=== PATIENT | male | born 1960 | race African-American/Black ===

== ENCOUNTER 2017-03-17 21:35 | Emergency (ER) | payer OTHER ==
[~2017-03-17] VITALS: Ht 175.3 cm; Wt 90.7 kg
[~2017-03-17 21:35] MED LIST: ASPERCREME76.5 GM; ICY HOT1 EAC1; [UNRECOGNIZED DRUG - OTHER] TP
[2017-03-17] MEDS ORDERED: AMOXICILLIN 50500 MG PO (22:06)
[2017-03-17] MEDS ORDERED: ULTRAM 50MG TAB50 MG PO (22:06)
[2017-03-17 23:30] VITALS: BP 140/70
== END 2017-03-17 23:25 | disposition home or self-care (01) ==
LOC: ER 21:35
DX: K04.7 Periapical abscess without sinus (principal)

== ENCOUNTER 2017-09-09 21:25 | Emergency (ER) | payer OTHER ==
[~2017-09-09] VITALS: Ht 175.3 cm; Wt 90.3 kg
[~2017-09-09 21:25] MED LIST changes: +AMOXICILLIN 50500 MG PO; +ULTRAM 50MG TAB50 MG PO
[2017-09-09 22:59] LABS: HEMATOCRIT 45.5 % (42.0-52.0); MCH 26.6 pg (26.0-34.0); MCHC 33.1 g/dL (28.0-37.0); MCV 80.5 fL (80.0-100.0); RBC 5.65 mil/uL (4.50-6.00); RDW 15.1 % (10.5-14.5)
[2017-09-09 23:07] LABS: CREATININE 1.4 mg/dL (0.7-1.3)
== END 2017-09-09 23:32 | disposition home or self-care (01) ==
LOC: ER 21:25
PROVIDERS: Physician Assistant
DX: R60.0 Localized edema (principal)